=== PATIENT | male | born 1945 | race African-American/Black ===

== ENCOUNTER 2017-09-02 10:08 | Emergency (ER) | payer OTHER ==
[~2017-09-02] VITALS: Ht 190.5 cm; Wt 73.0 kg
[2017-09-02] MEDS ORDERED: LISI-604 PO (10:17)
[2017-09-02] MEDS ORDERED: CYANOCOBALAMIN 1000MCG/ML VIAL IM ONE (10:45)
[2017-09-02] MEDS ORDERED: SODIUM CHLORIDE 0.9% 1,000 ML IV ONE (10:45)
[2017-09-02 11:07] LABS: BASOPHILS % 1.3 % (0.0-2.0); EOSINOPHILS % 1.6 % (0.0-5.0); HEMATOCRIT. 37.7 % (42.0-52.0); HEMOGLOBIN. 12.2 g/dL (14.0-18.0); LYMPHOCYTES % 37.8 % (20.0-50.0); MEAN CORPUSCULAR VOLUME 92.5 fL (80.0-94.0); MEAN PLATELET VOLUME 7.3 fl (7.4-10.4); MONOCYTES % 5.6 % (2.0-8.0); NEUTROPHILS % 53.7 % (40.0-76.0); PLATELET 337 x1000/uL (130-400); RED BLOOD CELL COUNT 4.07 mill/uL (4.7-6.1); RED CELL DISTRIBUTION WIDTH 14.8 % (11.6-14.6)
[2017-09-02 11:09] LABS: CHLORIDE 110 mEq/L (98-107)
[2017-09-02 11:13] LABS: ETHANOL BLOOD 283 mg/dL
[2017-09-02 11:18] LABS: PROTHROMBIN TIME 10.2 sec (9.4-11.6)
[2017-09-02 13:03] LABS: CLARITY URINE CLEAR (CLEAR); COLOR URINE YELLOW (YELLOW); KETONES URINE NEGATIVE (NEGATIVE); LEUKOCYTE ESTERASE URINE NEGATIVE (NEGATIVE); NITRITE URINE NEGATIVE (NEGATIVE); OCCULT BLOOD URINE NEGATIVE (NEGATIVE); PH URINE 5.5 (4.5-8.0); PROTEIN URINE NEGATIVE (NEGATIVE); SPECIFIC GRAVITY URINE 1.016 (1.005-1.030)
[2017-09-02 13:46] VITALS: BP 147/75
[2017-09-02 14:04] LABS: *AMPHETAMINES SCREEN URINE NEGATIVE (NEGATIVE); *BARBITURATES SCREEN URINE NEGATIVE (NEGATIVE); *BENZODIAZEPINES SCREEN URINE NEGATIVE (NEGATIVE); *COCAINE SCREEN URINE NEGATIVE (NEGATIVE); METHADONE URINE SCREEN NEGATIVE (NEGATIVE); OPIATES URINE SCREEN NEGATIVE (NEGATIVE)
[2017-09-02 14:05] LABS: CANNABINOID URINE SCREEN NEGATIVE (NEGATIVE)
[2017-09-02 14:06] LABS: PHENCYCLIDINE URINE SCREEN NEGATIVE (NEGATIVE)
== END 2017-09-02 13:49 | disposition home or self-care (01) ==
LOC: ER 10:08
DX: F10.229 Alcohol dependence with intoxication, unspecified (principal); E11.65 Type 2 diabetes mellitus with hyperglycemia; I10 Essential (primary) hypertension; E86.0 Dehydration; K00.7 Teething syndrome; R00.1 Bradycardia, unspecified; R10.13 Epigastric pain; R16.0 Hepatomegaly, not elsewhere classified; R61 Generalized hyperhidrosis; D64.9 Anemia, unspecified; E87.0 Hyperosmolality and hypernatremia; E87.8 Other disorders of electrolyte and fluid balance, not elsewhere classified; I21.4 Non-ST elevation (NSTEMI) myocardial infarction; E11.21 Type 2 diabetes mellitus with diabetic nephropathy; N17.0 Acute kidney failure with tubular necrosis; M47.896 Other spondylosis, lumbar region; J32.0 Chronic maxillary sinusitis; J32.2 Chronic ethmoidal sinusitis; M50.321 Other cervical disc degeneration at C4-C5 level; M50.322 Other cervical disc degeneration at C5-C6 level; J45.909 Unspecified asthma, uncomplicated; Z88.1 Allergy status to other antibiotic agents; W10.8XXA Fall (on) (from) other stairs and steps, initial encounter; Y93.89 Activity, other specified; Y92.89 Other specified places as the place of occurrence of the external cause; Y99.9 Unspecified external cause status
CPT/HCPCS: 36415; 70450; 71045; 72040; 72070; 72100; 80053; 80305; 81003; 83036; 83880; 84484; 85025; 85610; 93005; 96372; 99285; G0482; J3420; J7030; Z7610